=== PATIENT | female | born 1965 | race American Indian/Alaskan Native ===

== ENCOUNTER 2017-08-23 14:33 | Emergency (ER) | payer OTHER ==
[2017-08-23 14:41] VITALS: BP 113/89
--- NOTE | 2017-08-23 14:43 | EDM.PDOC ---
ED HPI GENERAL MEDICAL PROBLEM - General Chief Complaint: Chest Pain Stated Complaint: [facility] Time Seen by Provider: 08/23/17 14:42 Source of Information: Reports: Patient - History of Present Illness INITIAL COMMENTS - FREE TEXT/NARRATIVE: Patient is here for evaluation for chest pain that has been occurring over the past week. She states that it is sharp/nagging/burning feeling in the mid chest and radiates upwards. She states that eating does not affect this, nor does activity. She denies any heartburn or abdominal pain. She denies any associated nausea or diaphoresis when this pain occurs. She states that his been pretty much well constant. Patient reports an overall not very healthy diet but has not been eating much lately. She does smoke cigarettes daily and drinks "a lot" of coffee. Patient does have diabetes, she is on Levemir & NovoLog daily but has not been taking this as sometimes she forgets. She is also on lisinopril for hypertension. Patient doctors at [facility] in [place]. Patient does not have a history of CAD, she does have a history of hypertension and diabetes. Middle Chest Pain Score (Numeric/FACES): 4 - Related Data Allergies Allergy/AdvReac Type Severity Reaction Status Date / Time amoxicillin Allergy Swelling Verified 08/02/16 11:59 clindamycin Allergy Swelling Verified 08/02/16 11:59 Penicillins Allergy Rash Verified 08/23/17 14:41 Sulfa (Sulfonamide Allergy Swelling Verified 08/02/16 11:59 Antibiotics) Tetracyclines Allergy Swelling Verified 08/02/16 11:59 Home Meds: Home Meds Aspirin [Adult Low Dose Aspirin EC] 81 mg PO DAILY 08/23/17 [History] Insulin Aspart [Novolog] 0 unit SQ TID 08/23/17 [History] Insulin Detemir [Levemir] 15 unit SQ BID 08/23/17 [History] Lisinopril 5 mg PO DAILY 08/23/17 [History] Lisinopril 5 mg PO DAILY #30 tablet 08/23/17 [Rx] Omeprazole 20 mg PO DAILY #30 cap.sr 08/23/17 [Rx] Past Medical History Respiratory History: Reports: Asthma [employer] History: Reports: Musculoskeletal History: Reports: Arthritis, Fracture Dermatologic History: Reports: Other (See Below) Other Dermatologic History: abscess - Past Surgical History GI Surgical History: Reports: Cholecystectomy Social & Family History - Tobacco Use Smoking Status *Q: Current Every Day Smoker Years of Tobacco use: 30 Packs/Tins Daily: 1 - Caffeine Use Caffeine Use: Reports: Coffee, Soda, Tea - Recreational Drug Use Recreational Drug Use: No ED ROS GENERAL - Review of Systems Review Of Systems: See Below Constitutional: Reports: Weakness, Fatigue, Decreased Appetite. Denies: Fever, Chills HEENT: Reports: No Symptoms Respiratory: Denies: Shortness of Breath, Wheezing, Cough Cardiovascular: Reports: Chest Pain, Blood Pressure Problem, Dyspnea on Exertion , Edema. Denies: Claudication, Lightheadedness GI/Abdominal: Reports: No Symptoms Musculoskeletal: Reports: No Symptoms Skin: Reports: No Symptoms ED EXAM, GENERAL - Physical Exam Exam: See Below General Appearance: Alert, WD/WN, No Apparent Distress Throat/Mouth: Normal Inspection, Normal Oropharynx Head: Atraumatic, Normocephalic Neck: Normal Inspection, Non-Tender Respiratory/Chest: No Respiratory Distress, Lungs Clear, Normal Breath Sounds, No Accessory Muscle Use Cardiovascular: Normal Peripheral Pulses, Regular Rate, Rhythm, No Murmur GI/Abdominal: Normal Bowel Sounds, Soft, Other (mild epigastric tenderness) Skin Exam: Warm, Dry, Intact EKG INTERPRETATION EKG Date: 08/23/17 Rhythm: NSR Rate (Beats/Min): 71 Course - Vital Signs Last Recorded V/S: Last Vital Signs Temp 96.7 F 08/23/17 14:38 Pulse 70 08/23/17 14:38 Resp 24 H 08/23/17 14:38 BP 113/89 08/23/17 14:38 Pulse Ox 97 08/23/17 14:38 - Orders/Labs/Meds Orders: Active Orders 24 hr Category Date Time Status EKG 12 Lead [EKG Documentation Completion] [RC] STAT Care 08/23/17 14:43 Active CXR [Chest 2V] [CR] Stat Exams 08/23/17 14:52 Taken Labs: Laboratory Tests 08/23/17 08/23/17 Range/Units 14:50 14:50 WBC 9.74 (3.98-10.04) K/mm3 RBC 4.82 (3.98-5.22) M/mm3 Hgb 13.9 (11.2-15.7) gm/L Hct 39.3 (34.1-44.9) % MCV 81.5 (79.4-94.8) fl MCH 28.8 (25.6-32.2) pg MCHC 35.4 (32.2-35.5) g/dl RDW Std Deviation 38.5 (36.4-46.3) fL Plt Count 246 (182-369) K/mm3 MPV 9.5 (9.4-12.3) fl Neutrophils % (Manual) 65 H (40-60) % Band Neutrophils % 0 (0-10) % Lymphocytes % (Manual) 32 (20-40) % Atypical Lymphs % 0 % Monocytes % (Manual) 2 (2-10) % Eosinophils % (Manual) 1 (0.7-5.8) % Basophils % (Manual) 0 L (0.1-1.2) Platelet Estimate Adequate Plt Morphology Comment Normal RBC Morph Comment Normal Sodium 135 L (136-145) mEq/L Potassium 4.0 (3.5-5.1) mEq/L Chloride 102 (98-107) mEq/L Carbon Dioxide 22 (21-32) mEq/L Anion Gap 15.0 (5-15) BUN 15 (7-18) mg/dL Creatinine 0.8 (0.55-1.02) mg/dL Est Cr Clr Drug Dosing 82.04 mL/min Estimated GFR (MDRD) > 60 (>60) mL/min BUN/Creatinine Ratio 18.8 H (14-18) Glucose 217 H (74-106) mg/dL Calcium 8.9 (8.5-10.1) mg/dL Total Bilirubin 0.5 (0.2-1.0) mg/dL AST 18 (15-37) U/L ALT 26 (14-59) U/L Alkaline Phosphatase 88 (46-116) U/L Troponin I < 0.017 (0.00-0.056) ng/mL C-Reactive Protein 0.9 (<1.0) mg/dL Total Protein 8.1 (6.4-8.2) g/dl Albumin 3.2 L (3.4-5.0) g/dl Globulin 4.9 gm/dL Albumin/Globulin Ratio 0.7 L (1-2) Lipase 108 (73-393) U/L Meds: Medications Discontinued Medications Generic Name Dose Route Start Last Admin Trade Name Oscar PRN Reason Stop Dose Admin Al Hydroxide/Mg Hydroxide 30 0 ml 08/23/17 14:53 08/23/17 15:15 ml/ Lidocaine HCl 15 ml PO 08/23/17 14:54 45 ml ONETIME ONE Administration Sodium Chloride 1,000 mls @ 999 mls/hr 08/23/17 15:07 08/23/17 15:15 Normal Saline IV 08/23/17 16:07 999 mls/hr ONETIME ONE Administration - Re-Assessments/Exams Free Text/Narrative Re-Assessment/Exam: Patient's symptoms completely resolved with GI cocktail. EKG demonstrates normal sinus rhythm with a rate of 71. Troponin is negative, patient has been having symptoms all throughout the day as well as the week. Sodium mildly low at 135 but glucose is 217. Patient has not taken her insulin today and plans to take this at home. Question if patient's symptoms were related to GERD, will start omeprazole 20 mg daily 30 minutes prior to breakfast. She is to follow-up with her PCP at [facility], her lisinopril has also been refilled as she has not been able to get this from her PCP. She certainly may return to emergency room if any worsening symptoms. 08/23/17 16:48 Departure - Departure Time of Disposition: 16:43 Disposition: Home, Self-Care 01 Condition: Good Clinical Impression: Atypical chest pain GERD (gastroesophageal reflux disease) Qualifiers: Esophagitis presence: esophagitis presence not specified Qualified Code(s): K21.9 - Gastro-esophageal reflux disease without esophagitis Prescriptions: Lisinopril 5 mg PO DAILY #30 tablet Omeprazole 20 mg PO DAILY #30 cap.sr Referrals: PCP,None [Primary Care Provider] - Forms: ED Department Discharge Additional Instructions: Tests for your heart function showed no abnormality today. You need to take her lisinopril as prescribed, a refill has been sent for this. You also need to take her insulin as prescribed. Start omeprazole 20 mg daily 30 minutes before breakfast and try to avoid smoking and coffee. Follow-up with her primary provider or certainly return to the emergency room if any worsening of symptoms. - My Orders Last 24 Hours: My Active Orders 08/23/17 14:43 EKG 12 Lead [EKG Documentation Completion] [RC] STAT 08/23/17 14:52 CXR [Chest 2V] [CR] Stat - Assessment/Plan Last 24 Hours: My Active Orders 08/23/17 14:43 EKG 12 Lead [EKG Documentation Completion] [RC] STAT 08/23/17 14:52 CXR [Chest 2V] [CR] Stat
[2017-08-23] MEDS ORDERED: Alum Hydrox/Mag Hydrox/Simeth 30 ML, Lidocaine 2% 15 ML PO ONE ×2 (14:53)
[2017-08-23] MEDS ORDERED: Sodium Chloride 0.9% 1,000 ML IV ONE (15:07)
--- NOTE | 2017-08-23 17:11 | CR ---
Chest: Two views of the chest were obtained. Comparison: No prior study. Heart size and mediastinum are normal. Lungs are clear. Mild scoliosis is noted within the spine with diffuse degenerative spurring and diffuse disc space narrowing. Mild compression deformities are seen with mid thoracic spine which are felt to be old or developmental. Impression: 1. Spine findings as noted above which are likely chronic. 2. Nothing acute is appreciated on two-view chest x-ray. Diagnostic code #2
== END 2017-08-23 17:03 | disposition home or self-care (01) ==
LOC: JD.ED 14:33
DX: K21.9 Gastro-esophageal reflux disease without esophagitis (principal); R07.89 Other chest pain; I10 Essential (primary) hypertension; F17.210 Nicotine dependence, cigarettes, uncomplicated; Z88.0 Allergy status to penicillin; Z88.2 Allergy status to sulfonamides; Z79.82 Long term (current) use of aspirin; Z79.4 Long term (current) use of insulin; Z88.1 Allergy status to other antibiotic agents; Z79.899 Other long term (current) drug therapy
CPT/HCPCS: 36415; 71046; 80053; 83690; 84484; 85025; 86140; 93005; 96360; 99285; A9270; J7040; 99284

== ENCOUNTER 2018-11-10 23:25 | Emergency (ER) | payer OTHER ==
[2018-11-11] MEDS ORDERED: Nitrofurantoin Monohydrate/Macrocrystalline 100 MG Cap ONE (01:21)
--- NOTE | 2018-11-12 08:31 | ER ---
DATE OF ER VISIT: 11/11/2018 CHIEF COMPLAINT: Burning and frequency with urination. HISTORY OF PRESENT ILLNESS: The patient has had a 2 to 3 day history of worsening urinary frequency, occasional discomfort, and occasional passing of blood in her urine. Her blood sugars have been going up since she has had symptoms like this into the 300s. She is on insulin and taking a sliding scale. She is a poorly controlled type 2 diabetic. She has had several urinary tract infections much like this in the past. She denies any fevers or chills, but thought she did feel a little warm at 1 point, did take some Tylenol for this, and she did have improvement with her symptoms. PAST MEDICAL HISTORY: Significant for hypertension, type 2 diabetes, on insulin, recurrent UTIs, and morbid obesity. PAST SURGICAL HISTORY: Significant for cholecystectomy. REVIEW OF SYSTEMS: GENERAL: She thought she felt a little warm, but no significant fevers, no chills, no weakness. CARDIOVASCULAR: No chest pain or chest pressure. PULMONARY: No breathing difficulty or shortness of breath. GASTROINTESTINAL: No nausea, vomiting, constipation, diarrhea, and she has got some mild suprapubic discomfort. NEUROLOGIC: Unremarkable. PHYSICAL EXAMINATION: GENERAL: The patient appears stated age. She is in no acute distress. VITAL SIGNS: Temperature is 97 degrees, pulse 80 and regular, respirations 20 and nonlabored, blood pressure is 171/75, she rates her pain as a 7/10, and O2 saturations 96% on room air. HEAD: Normocephalic, atraumatic. NECK: Supple. No palpable neck masses. Thyroid is not palpable. HEART: Regular rate and rhythm. LUNGS: Clear. Respirations nonlabored. ABDOMEN: Active bowel sounds. Soft. She is morbidly obese. She has some suprapubic discomfort. No rigidity, rebound, or guarding. EXTREMITIES: Skin edema, this is normal for her. LABORATORY DATA: Urinalysis is suggestive of infectious process, positive leukocyte esterase, lots of clumped white cells, bacteria noted, does not appear to be a contaminated specimen. ASSESSMENT: Urinary tract infection. PLAN: The patient was started on Macrobid 100 mg p.o. b.i.d., 1st dose given here in the emergency room. She will stay on this for 1 week. She is to pay strict control to her blood sugars and follow her sliding scale. Return to the emergency room if anything is getting worse. Follow up in the clinic as needed; however, she should follow up in 3 to 4 days after finishing the antibiotics for recheck and she does understand this. ISAÍAS /[id number]
== END 2018-11-11 01:25 | disposition home or self-care (01) ==
LOC: JD.ED 23:25
DX: N39.0 Urinary tract infection, site not specified (principal); I10 Essential (primary) hypertension; E11.9 Type 2 diabetes mellitus without complications; Z79.4 Long term (current) use of insulin; E66.01 Morbid (severe) obesity due to excess calories
CPT/HCPCS: 81001; 99283; A9270

== ENCOUNTER 2022-06-16 00:57 | Inpatient (IN) | payer OTHER ==
[2022-06-16] MEDS ORDERED: Insulin Regular, Human 100 Units/ML 3 ML Vial SUBCUT STA (01:46)
[2022-06-16 03:01] LABS: ESTIMATED GFR 74 mL/min (>60)
[2022-06-16] MEDS ORDERED: Sodium Chloride 0.9% 1,000 ML IV SCH (03:30)
[2022-06-16] MEDS ORDERED: Magnesium Sulfate/Water 2 GM in Premix Bag 1 BAG IV ONE (03:30)
[2022-06-16 03:34] LABS: CORONAVIRUS COVID-19 NAA NEGATIVE (NEGATIVE)
[2022-06-16] MEDS ORDERED: Iopamidol 755 Mg/ML 100 ML Bottle IVPUSH ONE (05:21)
[2022-06-16] MEDS ORDERED: Albuterol/Ipratropium 3.0-0.5 MG/3 ML Neb Soln NEB PRN (09:50)
[2022-06-16] MEDS ORDERED: Furosemide 40 MG/4 ML VIAL IVPUSH ONE ×2 (09:50→14:00)
[2022-06-16 13:22] LABS: HEMOGLOBIN A1C 9.7 %
[2022-06-16] MEDS: Nicotine 7 MG/24 Hr Patch TRDERM SCH (15:46)
[2022-06-16] MEDS: Insulin Lispro 100 Unit/ML 3 ML KwikPen SUBCUT SCH ×3 (15:46→20:46)
[2022-06-16] MEDS: Docusate Sodium 100 MG Cap PO SCH (15:47)
[2022-06-16] MEDS ORDERED: Lidocaine 1% 10 ML MDV INJECT ONE (17:55)
[2022-06-16] MEDS: Rosuvastatin 10 MG Tab PO SCH ×2 (20:22→20:39)
[2022-06-16] MEDS: Metoprolol Tartrate 25 MG Tab PO SCH (20:23)
[2022-06-16] MEDS: Insulin Glargine,Human Rec. Analog 100 Units/ML 3 ML Pen SUBCUT SCH (20:36)
[2022-06-16] MEDS ORDERED: Benzocaine/Cetylpyridinium/Menthol Lozenge MUCMEM PRN (20:37)
[2022-06-16] MEDS ORDERED: guaiFENesin/Dextromethorphan 100-10 MG/5 ML Soln 5 ML Cup PO PRN (20:41)
[2022-06-16] MEDS ORDERED: Insulin Glargine,Human Rec. Analog 100 Units/ML 3 ML Pen SUBCUT SCH ×2 (21:00)
[2022-06-17] MEDS: Furosemide 40 MG/4 ML VIAL IVPUSH SCH ×2 (06:48→14:47)
[2022-06-17] MEDS ORDERED: Magnesium Sulfate/Water 2 GM in Premix Bag 1 BAG IV ONE (08:00)
[2022-06-17] MEDS ORDERED: Lisinopril 5 MG Tab PO SCH (09:00)
[2022-06-17] MEDS: Insulin Glargine,Human Rec. Analog 100 Units/ML 3 ML Pen SUBCUT SCH ×2 (09:06→20:38)
[2022-06-17] MEDS: Insulin Lispro 100 Unit/ML 3 ML KwikPen SUBCUT SCH ×4 (09:07→20:26)
[2022-06-17] MEDS: Metoprolol Tartrate 25 MG Tab PO SCH (09:08)
[2022-06-17] MEDS: Enoxaparin 40 MG/0.4 ML Syringe SUBCUT SCH (09:08)
[2022-06-17] MEDS: Aspirin 81 MG Tab.Chew PO SCH (09:27)
[2022-06-17] MEDS: Docusate Sodium 100 MG Cap PO SCH (09:29)
[2022-06-17] MEDS: Nicotine 7 MG/24 Hr Patch TRDERM SCH (09:32)
[2022-06-17] MEDS: Sacubitril/Valsartan 1 EACH Tablet PO SCH (20:11)
[2022-06-17] MEDS: Rosuvastatin 10 MG Tab PO SCH (20:11)
[2022-06-17] MEDS: Ondansetron 4 MG/2 ML SDV IV PRN (20:37)
[2022-06-18] MEDS: Ondansetron 4 MG/2 ML SDV IV PRN (04:21)
[2022-06-18] MEDS: Insulin Lispro 100 Unit/ML 3 ML KwikPen SUBCUT SCH ×4 (08:00→21:45)
[2022-06-18] MEDS: Aspirin 81 MG Tab.Chew PO SCH (08:53)
[2022-06-18] MEDS: Enoxaparin 40 MG/0.4 ML Syringe SUBCUT SCH (08:54)
[2022-06-18] MEDS: Sacubitril/Valsartan 1 EACH Tablet PO SCH ×2 (08:54→21:40)
[2022-06-18] MEDS: Nicotine 7 MG/24 Hr Patch TRDERM SCH (09:00)
[2022-06-18] MEDS: Docusate Sodium 100 MG Cap PO SCH (09:03)
[2022-06-18] MEDS: Insulin Glargine,Human Rec. Analog 100 Units/ML 3 ML Pen SUBCUT SCH ×2 (09:03→21:50)
[2022-06-18] MEDS ORDERED: Furosemide 40 MG/4 ML VIAL IVPUSH ONE (12:11)
[2022-06-18] MEDS: Rosuvastatin 10 MG Tab PO SCH (21:40)
[2022-06-19] MEDS: Insulin Lispro 100 Unit/ML 3 ML KwikPen SUBCUT SCH ×3 (07:43→16:50)
[2022-06-19] MEDS: Aspirin 81 MG Tab.Chew PO SCH (08:34)
[2022-06-19] MEDS: Docusate Sodium 100 MG Cap PO SCH (08:34)
[2022-06-19] MEDS: Enoxaparin 40 MG/0.4 ML Syringe SUBCUT SCH (08:34)
[2022-06-19] MEDS: Insulin Glargine,Human Rec. Analog 100 Units/ML 3 ML Pen SUBCUT SCH (08:34)
[2022-06-19] MEDS: Sacubitril/Valsartan 1 EACH Tablet PO SCH (08:34)
[2022-06-19] MEDS: Nicotine 7 MG/24 Hr Patch TRDERM SCH (08:44)
[2022-06-19] MEDS ORDERED: amLODIPine 5 MG Tab PO SCH (09:00)
[2022-06-19] MEDS: Bumetanide 1 MG/4 ML MDV IVPUSH SCH (11:03)
[2022-06-20] MEDS: Sacubitril/Valsartan 1 EACH Tablet PO SCH ×3 (00:07→22:05)
[2022-06-20] MEDS: Rosuvastatin 10 MG Tab PO SCH ×2 (00:07→22:05)
[2022-06-20] MEDS: Insulin Glargine,Human Rec. Analog 100 Units/ML 3 ML Pen SUBCUT SCH ×3 (00:08→22:05)
[2022-06-20] MEDS: Insulin Lispro 100 Unit/ML 3 ML KwikPen SUBCUT SCH ×5 (00:09→22:06)
[2022-06-20] MEDS: Bumetanide 1 MG/4 ML MDV IVPUSH SCH (00:20)
[2022-06-20] MEDS: Acetaminophen 325 MG Tab PO PRN (05:53)
[2022-06-20] MEDS: Docusate Sodium 100 MG Cap PO SCH (09:12)
[2022-06-20] MEDS: Aspirin 81 MG Tab.Chew PO SCH (09:12)
[2022-06-20] MEDS: Furosemide 40 MG Tab PO SCH (09:12)
[2022-06-20] MEDS: Nicotine 7 MG/24 Hr Patch TRDERM SCH (09:12)
[2022-06-20] MEDS: Enoxaparin 40 MG/0.4 ML Syringe SUBCUT SCH (09:14)
[2022-06-20] MEDS: Metoprolol Succinate 25 MG Tab.ER PO SCH (15:39)
[2022-06-21] MEDS ORDERED: Magnesium Sulfate/Water 4 GM in Premix Bag 1 BAG IV ONE (08:00)
[2022-06-21] MEDS ORDERED: Sodium Chloride 0.9% 500 ML ONE (08:20)
[2022-06-21] MEDS: Insulin Lispro 100 Unit/ML 3 ML KwikPen SUBCUT SCH (08:26)
[2022-06-21] MEDS: Insulin Glargine,Human Rec. Analog 100 Units/ML 3 ML Pen SUBCUT SCH (08:27)
[2022-06-21] MEDS: Furosemide 40 MG Tab PO SCH (08:29)
[2022-06-21] MEDS: Acetaminophen 325 MG Tab PO PRN (08:30)
[2022-06-21] MEDS: Sacubitril/Valsartan 1 EACH Tablet PO SCH (08:30)
[2022-06-21] MEDS: Aspirin 81 MG Tab.Chew PO SCH (08:30)
[2022-06-21] MEDS: Docusate Sodium 100 MG Cap PO SCH (08:30)
[2022-06-21] MEDS: Enoxaparin 40 MG/0.4 ML Syringe SUBCUT SCH (08:30)
[2022-06-21] MEDS: Metoprolol Succinate 25 MG Tab.ER PO SCH (08:31)
[2022-06-21] MEDS: Nicotine 7 MG/24 Hr Patch TRDERM SCH (08:38)
[2022-06-21 12:33] VITALS: BP 123/81; PULSE 64
[2022-06-22] MEDS ORDERED: Magnesium Oxide 400 MG Tab PO SCH (09:00)
== END 2022-06-21 12:10 | disposition home or self-care (01) | DRG 187 ==
LOC: JD.ED 00:57 → JD.MS 09:31
PROVIDERS: ADMIT Pediatrics; ATTEND Internal Medicine
PROC: 0W993ZX Drainage of Right Pleural Cavity, Percutaneous Approach, Diagnostic (ICD-10-PCS; principal; 2022-06-16)
DX: J90 Pleural effusion, not elsewhere classified (principal); I50.42 Chronic combined systolic (congestive) and diastolic (congestive) heart failure; I25.10 Atherosclerotic heart disease of native coronary artery without angina pectoris; I11.0 Hypertensive heart disease with heart failure; Z91.14 Patient's other noncompliance with medication regimen; R06.00 Dyspnea, unspecified; E11.65 Type 2 diabetes mellitus with hyperglycemia; Z79.4 Long term (current) use of insulin; E83.42 Hypomagnesemia; E66.01 Morbid (severe) obesity due to excess calories; R79.89 Other specified abnormal findings of blood chemistry; M15.9 Polyosteoarthritis, unspecified; R93.2 Abnormal findings on diagnostic imaging of liver and biliary tract; E78.00 Pure hypercholesterolemia, unspecified; I25.2 Old myocardial infarction; Z85.6 Personal history of leukemia; Z86.16 Personal history of COVID-19; F17.210 Nicotine dependence, cigarettes, uncomplicated; Z88.0 Allergy status to penicillin; Z88.1 Allergy status to other antibiotic agents; Z88.2 Allergy status to sulfonamides; Z79.82 Long term (current) use of aspirin; Z79.899 Other long term (current) drug therapy; Z20.822 Contact with and (suspected) exposure to COVID-19; Z66 Do not resuscitate
CPT/HCPCS: 0241U; 36415; 71045; 71045-26; 71046; 71046-26; 71275; 71275-26; 74176; 74176-26; 76705; 76705-26; 80048; 80053; 80061; 81001; 82009; 82945; 82947; 83036; 83605; 83615; 83735; 83880; 83986; 84100; 84157; 84311; 84484; 85007; 85025; 85027; 85379; 85610; 85730; 86140; 86803; 87040; 87205; 89050; 93005; 93306; 96365; 96366; 97162-GP; 97166-GO; 97530-GP; 99285-25; A9270-GY; J1650; J1815; J1815-GY; J1940; J2405; J3475; J3490; J7030; J7040; Q9967

== ENCOUNTER 2022-07-24 20:30 | Inpatient (IN) | payer OTHER ==
[2022-07-24] MEDS ORDERED: Furosemide 40 MG/4 ML VIAL IVPUSH ONE (20:39)
[2022-07-24] MEDS ORDERED: Sodium Chloride 0.9% 10 ML Syringe FLUSH PRN (20:41)
[2022-07-24 21:12] LABS: HEMOGLOBIN A1C 8.8 %
[2022-07-24 21:28] LABS: ESTIMATED GFR 74 mL/min (>60)
[2022-07-24 21:39] LABS: CORONAVIRUS COVID-19 NAA NEGATIVE (NEGATIVE)
[2022-07-24] MEDS ORDERED: Insulin Regular, Human 100 Units/ML 3 ML Vial SUBCUT ONE (22:41)
[2022-07-24] MEDS ORDERED: Insulin Lispro 100 Unit/ML 3 ML KwikPen SUBCUT ONE (22:41)
[2022-07-24] MEDS ORDERED: Sacubitril/Valsartan 1 EACH Tablet PO ONE (22:42)
[2022-07-24] MEDS ORDERED: LORazepam 2 MG/ML SDV IVPUSH ONE (22:44)
[2022-07-25] MEDS ORDERED: Furosemide 40 MG/4 ML VIAL IVPUSH ONE ×2 (02:30→07:20)
[2022-07-25] MEDS ORDERED: Magnesium Oxide 400 MG Tab PO ONE ×2 (08:55→12:00)
[2022-07-25] MEDS ORDERED: Sacubitril/Valsartan 1 EACH Tablet PO SCH (09:00)
[2022-07-25] MEDS ORDERED: Metoprolol Succinate 25 MG Tab.ER PO SCH (09:00)
[2022-07-25] MEDS ORDERED: Docusate Sodium 100 MG Cap PO PRN (11:40)
[2022-07-25] MEDS ORDERED: Polyethylene Glycol 3350 Powder 17 GM Packet PO PRN (11:40)
[2022-07-25] MEDS: Aspirin 81 MG Tab.Chew PO SCH (11:56)
[2022-07-25] MEDS: Insulin Lispro 100 Unit/ML 3 ML KwikPen SUBCUT SCH ×3 (11:56→21:42)
[2022-07-25] MEDS: Insulin Glargine,Human Rec. Analog 100 Units/ML 3 ML Pen SUBCUT SCH ×2 (11:57→21:41)
[2022-07-25] MEDS: Enoxaparin 40 MG/0.4 ML Syringe SUBCUT SCH (12:10)
[2022-07-25] MEDS: Metoprolol Succinate 25 MG Tab.ER PO SCH (12:11)
[2022-07-25] MEDS: Sacubitril/Valsartan 1 EACH Tablet PO SCH ×2 (12:16→20:12)
[2022-07-25] MEDS: Furosemide 40 MG/4 ML VIAL IVPUSH SCH (15:45)
[2022-07-25] MEDS: Nicotine 14 MG/24 Hr Patch TRDERM SCH (15:45)
[2022-07-25] MEDS: Rosuvastatin 10 MG Tab PO SCH (20:12)
[2022-07-25] MEDS: Acetaminophen 325 MG Tab PO PRN (20:12)
[2022-07-26] MEDS: Furosemide 40 MG/4 ML VIAL IVPUSH SCH ×2 (06:57→14:01)
[2022-07-26] MEDS ORDERED: Magnesium Sulfate/Water 2 GM in Premix Bag 1 BAG IV ONE (07:52)
[2022-07-26] MEDS: Enoxaparin 40 MG/0.4 ML Syringe SUBCUT SCH (09:41)
[2022-07-26] MEDS: Metoprolol Succinate 25 MG Tab.ER PO SCH (09:42)
[2022-07-26] MEDS: Aspirin 81 MG Tab.Chew PO SCH (09:42)
[2022-07-26] MEDS: Sacubitril/Valsartan 1 EACH Tablet PO SCH ×2 (09:42→20:09)
[2022-07-26] MEDS: Magnesium Oxide 400 MG Tab PO SCH (09:42)
[2022-07-26] MEDS: Insulin Lispro 100 Unit/ML 3 ML KwikPen SUBCUT SCH ×4 (09:45→21:13)
[2022-07-26] MEDS: Insulin Glargine,Human Rec. Analog 100 Units/ML 3 ML Pen SUBCUT SCH ×2 (09:49→21:13)
[2022-07-26] MEDS: Nicotine 14 MG/24 Hr Patch TRDERM SCH (09:54)
[2022-07-26] MEDS: Acetaminophen 325 MG Tab PO PRN (14:01)
[2022-07-26] MEDS ORDERED: Acetaminophen/Codeine 300-30 MG Tab PO PRN (20:15)
[2022-07-26] MEDS: Rosuvastatin 10 MG Tab PO SCH (21:13)
[2022-07-27] MEDS: Furosemide 40 MG/4 ML VIAL IVPUSH SCH ×2 (06:15→14:04)
[2022-07-27] MEDS ORDERED: Magnesium Sulfate/Water 4 GM in Premix Bag 1 BAG IV ONE (08:15)
[2022-07-27] MEDS: Insulin Lispro 100 Unit/ML 3 ML KwikPen SUBCUT SCH ×4 (08:30→21:27)
[2022-07-27] MEDS: Sacubitril/Valsartan 1 EACH Tablet PO SCH ×2 (08:31→20:14)
[2022-07-27] MEDS: Aspirin 81 MG Tab.Chew PO SCH (08:31)
[2022-07-27] MEDS: Metoprolol Succinate 25 MG Tab.ER PO SCH (08:31)
[2022-07-27] MEDS: Magnesium Oxide 400 MG Tab PO SCH (08:31)
[2022-07-27] MEDS: Nicotine 14 MG/24 Hr Patch TRDERM SCH (08:33)
[2022-07-27] MEDS: Enoxaparin 40 MG/0.4 ML Syringe SUBCUT SCH (08:33)
[2022-07-27] MEDS: Insulin Glargine,Human Rec. Analog 100 Units/ML 3 ML Pen SUBCUT SCH ×2 (08:43→21:26)
[2022-07-27] MEDS: Rosuvastatin 10 MG Tab PO SCH (20:14)
[2022-07-28] MEDS: Furosemide 40 MG/4 ML VIAL IVPUSH SCH (07:01)
[2022-07-28] MEDS: Nicotine 14 MG/24 Hr Patch TRDERM SCH (08:33)
[2022-07-28] MEDS: Metoprolol Succinate 25 MG Tab.ER PO SCH (08:33)
[2022-07-28] MEDS: Magnesium Oxide 400 MG Tab PO SCH (08:34)
[2022-07-28] MEDS: Sacubitril/Valsartan 1 EACH Tablet PO SCH (08:34)
[2022-07-28] MEDS: Enoxaparin 40 MG/0.4 ML Syringe SUBCUT SCH (08:34)
[2022-07-28] MEDS: Aspirin 81 MG Tab.Chew PO SCH (08:34)
[2022-07-28] MEDS: Insulin Glargine,Human Rec. Analog 100 Units/ML 3 ML Pen SUBCUT SCH (08:34)
[2022-07-28 08:35] VITALS: BP 104/64; PULSE 72
[2022-07-28] MEDS: Insulin Lispro 100 Unit/ML 3 ML KwikPen SUBCUT SCH ×2 (08:37→12:24)
== END 2022-07-28 12:20 | disposition home or self-care (01) | DRG 291 ==
LOC: JD.ED 20:30 → JD.ICU 07-25 08:55 → JD.MS 07-25 13:27
PROVIDERS: ADMIT Pediatrics; ATTEND Pediatrics
DX: I11.0 Hypertensive heart disease with heart failure (principal); I50.43 Acute on chronic combined systolic (congestive) and diastolic (congestive) heart failure; Z68.41 Body mass index [BMI] 40.0-44.9, adult; I25.10 Atherosclerotic heart disease of native coronary artery without angina pectoris; E78.5 Hyperlipidemia, unspecified; J44.9 Chronic obstructive pulmonary disease, unspecified; Z66 Do not resuscitate; L40.9 Psoriasis, unspecified; H54.7 Unspecified visual loss; E78.00 Pure hypercholesterolemia, unspecified; Z20.822 Contact with and (suspected) exposure to COVID-19; K21.9 Gastro-esophageal reflux disease without esophagitis; E11.65 Type 2 diabetes mellitus with hyperglycemia; E83.42 Hypomagnesemia; M19.90 Unspecified osteoarthritis, unspecified site; E66.01 Morbid (severe) obesity due to excess calories; G43.909 Migraine, unspecified, not intractable, without status migrainosus; D64.9 Anemia, unspecified; Z86.16 Personal history of COVID-19; Z90.89 Acquired absence of other organs; Z88.1 Allergy status to other antibiotic agents; I25.2 Old myocardial infarction; Z88.0 Allergy status to penicillin; Z88.2 Allergy status to sulfonamides; Z88.8 Allergy status to other drugs, medicaments and biological substances; Z79.82 Long term (current) use of aspirin; Z79.4 Long term (current) use of insulin; Z79.899 Other long term (current) drug therapy; Z87.440 Personal history of urinary (tract) infections; Z87.891 Personal history of nicotine dependence; Z90.49 Acquired absence of other specified parts of digestive tract; Z91.14 Patient's other noncompliance with medication regimen
CPT/HCPCS: 0241U; 36415; 71045; 71045-26; 80048; 80053; 81001; 82553; 82947; 83036; 83605; 83735; 83880; 84484; 85025; 85610; 85730; 86140; 93005; 96372; 96374; 96375; 96376; 99285-25; A9270-GY; J1650; J1815; J1815-GY; J1940; J2060; J3475; J3490

== ENCOUNTER 2024-03-31 08:26 | Inpatient (IN) | payer OTHER ==
[2024-03-31] MEDS ORDERED: Sodium Chloride 0.9% 10 ML Syringe FLUSH PRN (08:41)
[2024-03-31] MEDS ORDERED: Nitroglycerin 0.4 MG Tab.SL SL PRN (08:45)
[2024-03-31 09:00] LABS: BASOPHILS PERCENT AUTO 0.5 % (0.0-1.0); EOSINOPHILS ABSOLUTE AUTO 0.1 K/mm3 (0.0-0.4); EOSINOPHILS PERCENT AUTO 0.9 % (0.0-6.0); HEMATOCRIT 45.9 % (37.0-47.0); HEMOGLOBIN 14.9 gm/dl (12.0-16.0); IMMATURE GRAN ABSOLUTE AUTO 0.04 K/mm3 (0.00-0.05); IMMATURE GRAN PERCENT AUTO 0.5 % (0.0-0.4); LYMPHOCYTES ABSOLUTE AUTO 1.3 K/mm3 (1.0-4.8); LYMPHOCYTES PERCENT AUTO 16.1 % (24.0-44.0); MEAN CORPUSCULAR HEMOGLOBIN 28.3 pg (28.0-32.0); MEAN CORPUSCULAR HGB CONC 32.5 g/dl (32.0-36.0); MEAN CORPUSCULAR VOLUME 87.3 fl (83.0-99.0); MEAN PLATELET VOLUME 9.3 fl (9.4-12.3); MONOCYTES ABSOLUTE AUTO 0.4 K/mm3 (0.0-0.8); MONOCYTES PERCENT AUTO 4.8 % (0.0-8.0); NEUTROPHILS ABSOLUTE AUTO 6.2 K/mm3 (1.8-7.7); NEUTROPHILS PERCENT AUTO 77.2 % (41.0-71.0); PLATELET COUNT,PLT 243 K/mm3 (150-400); RED BLOOD CELL COUNT 5.26 M/mm3 (4.10-5.30); WHITE BLOOD CELL COUNT,WBC 8.07 K/mm3 (3.9-11.3)
[2024-03-31 09:23] LABS: A/G RATIO 0.6 (1-2); ALBUMIN 2.8 g/dl (3.4-5.0); ANION GAP 14.2 (5-15); BILIRUBIN TOTAL 0.9 mg/dL (0.2-1.0); CALCIUM 8.9 mg/dL (8.5-10.1); EST CRCL DRUG DOSING (CG) 61.1 mL/min; MAGNESIUM 1.5 mg/dL (1.8-2.4); PROTEIN TOTAL,TP 7.5 g/dl (6.4-8.2)
[2024-03-31 09:26] LABS: POTASSIUM,K 5.2 mEq/L (3.5-5.1)
[2024-03-31] MEDS: Aspirin 81 MG Tab.Chew PO ONE (09:38)
[2024-03-31 11:28] LABS: CORONAVIRUS COVID-19 NAA NEGATIVE (NEGATIVE); INFLUENZA A NAA NEGATIVE (NEGATIVE); RESPIRATORY SYNCYTIAL VIR NAA NEGATIVE (NEGATIVE)
[2024-03-31] MEDS: Furosemide 40 MG/4 ML VIAL IVPUSH ONE ×2 (12:54→15:37)
[2024-03-31] MEDS ORDERED: 50% Dextrose in Water 50 ML Syringe IVPUSH PRN (14:55)
[2024-03-31] MEDS ORDERED: Morphine 2 MG/ML SYRINGE IVPUSH PRN (14:58)
[2024-03-31] MEDS ORDERED: Sennosides/Docusate Sodium 50-8.6 MG Tab PO PRN (14:58)
[2024-03-31] MEDS ORDERED: Melatonin 3 MG Tab PO PRN (14:58)
[2024-03-31] MEDS ORDERED: Naloxone 0.4 MG/ML SDV IVPUSH PRN (14:58)
[2024-03-31] MEDS ORDERED: Acetaminophen 325 MG Tab PO PRN (14:58)
[2024-03-31] MEDS ORDERED: LORazepam 2 MG/ML SDV IV PRN (14:58)
[2024-03-31] MEDS: Magnesium Sulfate/Water 4 GM in Premix Bag 1 BAG IV ONE (15:37)
[2024-03-31] MEDS: Insulin Lispro 100 Unit/ML 3 ML KwikPen SUBCUT SCH (17:07)
[2024-04-01 06:06] LABS: BASOPHILS ABSOLUTE AUTO 0.1 K/mm3 (0.0-0.2); BASOPHILS PERCENT AUTO 0.7 % (0.0-1.0); EOSINOPHILS ABSOLUTE AUTO 0.1 K/mm3 (0.0-0.4); EOSINOPHILS PERCENT AUTO 1.6 % (0.0-6.0); IMMATURE GRAN ABSOLUTE AUTO 0.03 K/mm3 (0.00-0.05); IMMATURE GRAN PERCENT AUTO 0.4 % (0.0-0.4); MEAN CORPUSCULAR HEMOGLOBIN 27.9 pg (28.0-32.0); MEAN CORPUSCULAR HGB CONC 31.8 g/dl (32.0-36.0); MEAN CORPUSCULAR VOLUME 87.8 fl (83.0-99.0); MEAN PLATELET VOLUME 9.2 fl (9.4-12.3); MONOCYTES ABSOLUTE AUTO 0.5 K/mm3 (0.0-0.8); MONOCYTES PERCENT AUTO 6.7 % (0.0-8.0); NEUTROPHILS ABSOLUTE AUTO 4.6 K/mm3 (1.8-7.7); NEUTROPHILS PERCENT AUTO 63.6 % (41.0-71.0); PLATELET COUNT,PLT 229 K/mm3 (150-400); RED BLOOD CELL COUNT 5.01 M/mm3 (4.10-5.30)
[2024-04-01 06:27] LABS: A/G RATIO 0.6 (1-2); ALBUMIN 2.5 g/dl (3.4-5.0); BILIRUBIN TOTAL 0.9 mg/dL (0.2-1.0); BUN/CREATININE RATIO 12.7 (14-18); CALCIUM 8.7 mg/dL (8.5-10.1); CREATININE 1.1 mg/dL (0.55-1.02); EST CRCL DRUG DOSING (CG) 55.55 mL/min; MAGNESIUM 1.9 mg/dL (1.8-2.4); PHOSPHORUS 4.3 mg/dL (2.6-4.7); PROTEIN TOTAL,TP 6.5 g/dl (6.4-8.2)
[2024-04-01] MEDS: Enoxaparin 40 MG/0.4 ML Syringe SUBCUT SCH (08:23)
[2024-04-01] MEDS ORDERED: Nitroglycerin 0.4 MG Tab.SL SL PRN (16:46)
[2024-04-01] MEDS: Magnesium Oxide 400 MG Tab PO SCH (17:41)
[2024-04-01] MEDS: Aspirin 81 MG Tab.Chew PO SCH (17:41)
[2024-04-01] MEDS: Furosemide 40 MG Tab PO SCH (17:41)
[2024-04-01] MEDS: Metoprolol Succinate 25 MG Tab.ER PO SCH (17:42)
[2024-04-01] MEDS: Empagliflozin 10 MG Tab PO SCH (17:42)
[2024-04-01] MEDS: Albuterol 6.7 GM Inhaler INH SCH (19:02)
[2024-04-01] MEDS: Insulin Glargine,Human Rec. Analog 100 Units/ML 3 ML Pen SUBCUT SCH (20:06)
[2024-04-01] MEDS: Sacubitril/Valsartan 1 EACH Tablet PO SCH (20:07)
[2024-04-01] MEDS: Rosuvastatin 10 MG Tab PO SCH (20:07)
[2024-04-01] MEDS: oxyCODONE 5 MG Tab PO PRN (20:54)
[2024-04-02] MEDS: Albuterol 6.7 GM Inhaler INH SCH (01:28)
[2024-04-02 05:11] LABS: ANION GAP 11.9 (5-15); BUN/CREATININE RATIO 15.8 (14-18); CALCIUM 8.8 mg/dL (8.5-10.1); CREATININE 1.2 mg/dL (0.55-1.02); EST CRCL DRUG DOSING (CG) 50.92 mL/min; MAGNESIUM 1.7 mg/dL (1.8-2.4); POTASSIUM,K 3.9 mEq/L (3.5-5.1)
[2024-04-02] MEDS ORDERED: Albuterol 6.7 GM Inhaler INH PRN (08:00)
[2024-04-02] MEDS: Magnesium Sulfate/Water 4 GM in Premix Bag 1 BAG IV ONE (09:04)
[2024-04-02] MEDS: Spironolactone 25 MG Tab PO SCH (09:07)
[2024-04-02] MEDS: Potassium Chloride 20 MEQ Tab.ER PO ONE (09:07)
[2024-04-03 08:52] VITALS: BP 139/89; PULSE 60
== END 2024-04-03 09:52 | disposition home or self-care (01) | DRG 291 ==
LOC: JD.ED 08:26 → OBSVTOIN 11:57 → JD.MS 11:57
PROVIDERS: ADMIT Student in an Organized Health Care Education/Training Program; ATTEND Student in an Organized Health Care Education/Training Program
DX: I11.0 Hypertensive heart disease with heart failure (principal); I50.43 Acute on chronic combined systolic (congestive) and diastolic (congestive) heart failure; J96.01 Acute respiratory failure with hypoxia; Z68.42 Body mass index [BMI] 45.0-49.9, adult; Z66 Do not resuscitate; I25.10 Atherosclerotic heart disease of native coronary artery without angina pectoris; E78.00 Pure hypercholesterolemia, unspecified; E66.9 Obesity, unspecified; I25.2 Old myocardial infarction; G43.909 Migraine, unspecified, not intractable, without status migrainosus; D64.9 Anemia, unspecified; I50.810 Right heart failure, unspecified; M19.90 Unspecified osteoarthritis, unspecified site; E87.5 Hyperkalemia; E83.42 Hypomagnesemia; E11.65 Type 2 diabetes mellitus with hyperglycemia; J45.909 Unspecified asthma, uncomplicated; I08.1 Rheumatic disorders of both mitral and tricuspid valves; F17.210 Nicotine dependence, cigarettes, uncomplicated; Z88.0 Allergy status to penicillin; Z88.1 Allergy status to other antibiotic agents; Z88.2 Allergy status to sulfonamides; Z88.8 Allergy status to other drugs, medicaments and biological substances; Z97.3 Presence of spectacles and contact lenses; Z79.4 Long term (current) use of insulin; Z79.82 Long term (current) use of aspirin; Z90.49 Acquired absence of other specified parts of digestive tract; Z86.16 Personal history of COVID-19; Z90.89 Acquired absence of other organs; Z79.899 Other long term (current) drug therapy
CPT/HCPCS: 0241U; 36415; 70450; 70450-26; 71045; 71045-26; 71046; 71046-26; 80048; 80053; 82947; 83735; 83880; 84100; 84484; 85025; 93005; 93010; 93306; 94640; 94761; 96374; 99285; 99285-25; A9270-GY; J1650; J1815; J1815-GY; J1940; J3475

== ENCOUNTER 2024-08-03 21:30 | Emergency (ER) | payer OTHER ==
[2024-08-03] MEDS ORDERED: Sodium Chloride 0.9% 10 ML Syringe FLUSH PRN (21:57)
[2024-08-03 22:05] LABS: BASOPHILS ABSOLUTE AUTO 0.1 K/mm3 (0.0-0.2); BASOPHILS PERCENT AUTO 0.6 % (0.0-1.0); EOSINOPHILS ABSOLUTE AUTO 0.1 K/mm3 (0.0-0.4); EOSINOPHILS PERCENT AUTO 0.7 % (0.0-6.0); HEMATOCRIT 48.6 % (37.0-47.0); HEMOGLOBIN 16.2 gm/dl (12.0-16.0); IMMATURE GRAN ABSOLUTE AUTO 0.05 K/mm3 (0.00-0.05); IMMATURE GRAN PERCENT AUTO 0.5 % (0.0-0.4); LYMPHOCYTES ABSOLUTE AUTO 1.8 K/mm3 (1.0-4.8); LYMPHOCYTES PERCENT AUTO 18.9 % (24.0-44.0); MEAN CORPUSCULAR HEMOGLOBIN 27.8 pg (28.0-32.0); MEAN CORPUSCULAR HGB CONC 33.3 g/dl (32.0-36.0); MEAN CORPUSCULAR VOLUME 83.4 fl (83.0-99.0); MEAN PLATELET VOLUME 10.1 fl (9.4-12.3); MONOCYTES ABSOLUTE AUTO 0.5 K/mm3 (0.0-0.8); MONOCYTES PERCENT AUTO 4.8 % (0.0-8.0); NEUTROPHILS ABSOLUTE AUTO 7.2 K/mm3 (1.8-7.7); NEUTROPHILS PERCENT AUTO 74.5 % (41.0-71.0); PLATELET COUNT,PLT 231 K/mm3 (150-400); RED BLOOD CELL COUNT 5.83 M/mm3 (4.10-5.30); WHITE BLOOD CELL COUNT,WBC 9.67 K/mm3 (3.9-11.3)
[2024-08-03] MEDS: Meclizine 25 MG Tab PO ONE (22:08)
[2024-08-03] MEDS: Metoclopramide 10 MG/2 ML SDV IVPUSH ONE (22:08)
[2024-08-03] MEDS: HYDROmorphone 0.5 MG/0.5 ML Syringe IVPUSH ONE (22:08)
[2024-08-03 22:24] LABS: A/G RATIO 0.6 (1-2); ALBUMIN 2.7 g/dl (3.4-5.0); ANION GAP 12.6 (5-15); BILIRUBIN TOTAL 0.8 mg/dL (0.2-1.0); BUN/CREATININE RATIO 16.9 (14-18); CALCIUM 8.7 mg/dL (8.5-10.1); CREATININE 1.3 mg/dL (0.55-1.02); EST CRCL DRUG DOSING (CG) 53.11 mL/min; MAGNESIUM 1.6 mg/dL (1.8-2.4); PROTEIN TOTAL,TP 7.4 g/dl (6.4-8.2)
[2024-08-03 22:36] LABS: POTASSIUM,K 4.6 mEq/L (3.5-5.1)
[2024-08-04 02:19] VITALS: BP 139/81; PULSE 62
== END 2024-08-04 01:54 | disposition home or self-care (01) ==
LOC: JD.ED 21:30
DX: I11.0 Hypertensive heart disease with heart failure (principal); I50.23 Acute on chronic systolic (congestive) heart failure; R42 Dizziness and giddiness; I25.10 Atherosclerotic heart disease of native coronary artery without angina pectoris; I25.2 Old myocardial infarction; E78.00 Pure hypercholesterolemia, unspecified; J45.909 Unspecified asthma, uncomplicated; M19.90 Unspecified osteoarthritis, unspecified site; E11.9 Type 2 diabetes mellitus without complications; E66.9 Obesity, unspecified; Z68.41 Body mass index [BMI] 40.0-44.9, adult; Z86.16 Personal history of COVID-19; Z90.49 Acquired absence of other specified parts of digestive tract; Z88.0 Allergy status to penicillin; Z88.1 Allergy status to other antibiotic agents; Z88.2 Allergy status to sulfonamides; Z88.8 Allergy status to other drugs, medicaments and biological substances; Z79.51 Long term (current) use of inhaled steroids; Z79.82 Long term (current) use of aspirin; Z79.4 Long term (current) use of insulin; Z79.899 Other long term (current) drug therapy
CPT/HCPCS: 36415; 70450; 71045; 80053; 83735; 83880; 84484; 85025; 87428; 93005; 96374; 96375; 99285; A9270; J2765; 93010

== ENCOUNTER 2025-02-08 07:49 | Emergency (ER) | payer OTHER ==
[2025-02-08 09:08] LABS: BASOPHILS ABSOLUTE AUTO 0.0 K/mm3 (0.0-0.2); BASOPHILS PERCENT AUTO 0.4 % (0.0-1.0); EOSINOPHILS ABSOLUTE AUTO 0.1 K/mm3 (0.0-0.4); EOSINOPHILS PERCENT AUTO 0.6 % (0.0-6.0); IMMATURE GRAN ABSOLUTE AUTO 0.05 K/mm3 (0.00-0.05); IMMATURE GRAN PERCENT AUTO 0.5 % (0.0-0.4); LYMPHOCYTES ABSOLUTE AUTO 1.4 K/mm3 (1.0-4.8); LYMPHOCYTES PERCENT AUTO 14.0 % (24.0-44.0); MEAN PLATELET VOLUME 9.7 fl (9.4-12.3); MONOCYTES ABSOLUTE AUTO 0.6 K/mm3 (0.0-0.8); MONOCYTES PERCENT AUTO 6.0 % (0.0-8.0); NEUTROPHILS ABSOLUTE AUTO 7.6 K/mm3 (1.8-7.7); NEUTROPHILS PERCENT AUTO 78.5 % (41.0-71.0); NRBC ABSOLUTE 0.00 (0.00-0.02); NRBC PERCENT 0.0 % (0.0-0.2); PLATELET COUNT,PLT 183 K/mm3 (150-400); RED BLOOD CELL COUNT 5.80 M/mm3 (4.10-5.30); WHITE BLOOD CELL COUNT,WBC 9.65 K/mm3 (3.9-11.3)
[2025-02-08] MEDS: Furosemide 40 MG/4 ML VIAL IVPUSH ONE (09:15)
[2025-02-08 09:38] LABS: A/G RATIO 0.6 (1-2); ALANINE AMINOTRANSFERASE,ALT 19.0 U/L (14-59); ASPARTATE AMNIOTRANSFERASE,AST 17.0 U/L (15-37); BILIRUBIN TOTAL 1.1 mg/dL (0.2-1.0); BLOOD UREA NITROGEN,BUN 18.0 mg/dL (7-18); CARBON DIOXIDE,CO2 28.0 mEq/L (21-32); CHLORIDE,CL 104.0 mEq/L (98-107); CREATINE KINASE,CK 65.0 U/L (26-192); CREATININE 1.1 mg/dL (0.55-1.02); EST CRCL DRUG DOSING (CG) 54.86 mL/min; ESTIMATED GFR 58.0 mL/min (>60); GLUCOSE RANDOM 211.0 mg/dL (70-99); POTASSIUM,K 4.6 mEq/L (3.5-5.1); PROTEIN TOTAL,TP 7.4 g/dl (6.4-8.2); SODIUM,NA 138.0 mEq/L (136-145); TROPONIN I HIGH SENSITIVITY 29.0 pg/mL (<=51)
[2025-02-08 11:08] LABS: BUPRENORPHINE SCREEN,URINE NEGATIVE (CUTOFF=10); METHADONE SCREEN, URINE NEGATIVE (CUTOFF=200); METHAMPHETAMINES SCREEN, URINE NEGATIVE (CUTOFF=500); OXYCODONE SCREEN,URINE NEGATIVE (CUT0FF=100); THC SCREEN,URINE 20 NG/ML NEGATIVE (CUTOFF=50)
[2025-02-08 11:32] LABS: AMPHETAMINES SCREEN, URINE NEGATIVE (CUTOFF=500)
[2025-02-08 13:01] VITALS: BP 138/83; PULSE 75
== END 2025-02-08 12:30 | disposition home or self-care (01) ==
LOC: JD.ED 07:49
DX: I50.43 Acute on chronic combined systolic (congestive) and diastolic (congestive) heart failure (principal); R60.0 Localized edema; Z91.198 Patient's noncompliance with other medical treatment and regimen for other reason; I11.0 Hypertensive heart disease with heart failure; I50.9 Heart failure, unspecified; E78.00 Pure hypercholesterolemia, unspecified; M19.90 Unspecified osteoarthritis, unspecified site; E66.9 Obesity, unspecified; E11.9 Type 2 diabetes mellitus without complications; Z88.0 Allergy status to penicillin; Z88.1 Allergy status to other antibiotic agents; Z88.2 Allergy status to sulfonamides; Z88.8 Allergy status to other drugs, medicaments and biological substances; Z79.82 Long term (current) use of aspirin; Z79.4 Long term (current) use of insulin; Z79.899 Other long term (current) drug therapy; Z86.16 Personal history of COVID-19; Z90.49 Acquired absence of other specified parts of digestive tract
CPT/HCPCS: 36415; 71045; 80053; 80306; 82550; 83690; 83735; 83880; 84484; 85025; 93005; 96365; 96375; 99285; J1938; J3475

== ENCOUNTER 2025-03-28 02:09 | Emergency (ER) | payer OTHER ==
[2025-03-28 02:42] LABS: BASOPHILS ABSOLUTE AUTO 0.0 K/mm3 (0.0-0.2); BASOPHILS PERCENT AUTO 0.4 % (0.0-1.0); EOSINOPHILS ABSOLUTE AUTO 0.1 K/mm3 (0.0-0.4); EOSINOPHILS PERCENT AUTO 1.2 % (0.0-6.0); IMMATURE GRAN ABSOLUTE AUTO 0.06 K/mm3 (0.00-0.05); IMMATURE GRAN PERCENT AUTO 0.6 % (0.0-0.4); LYMPHOCYTES ABSOLUTE AUTO 1.8 K/mm3 (1.0-4.8); LYMPHOCYTES PERCENT AUTO 19.3 % (24.0-44.0); MEAN PLATELET VOLUME 10.1 fl (9.4-12.3); MONOCYTES ABSOLUTE AUTO 0.6 K/mm3 (0.0-0.8); MONOCYTES PERCENT AUTO 6.0 % (0.0-8.0); NEUTROPHILS ABSOLUTE AUTO 6.9 K/mm3 (1.8-7.7); NEUTROPHILS PERCENT AUTO 72.5 % (41.0-71.0); NRBC ABSOLUTE 0.00 (0.00-0.02); NRBC PERCENT 0.0 % (0.0-0.2); PLATELET COUNT,PLT 194 K/mm3 (150-400); RED BLOOD CELL COUNT 6.39 M/mm3 (4.10-5.30); WHITE BLOOD CELL COUNT,WBC 9.55 K/mm3 (3.9-11.3)
[2025-03-28] MEDS: Nitroglycerin 2% Oint 1 GM UD Packet TOP ONE (03:06)
[2025-03-28 03:32] LABS: A/G RATIO 0.7 (1-2); ALANINE AMINOTRANSFERASE,ALT 41.0 U/L (14-59); ASPARTATE AMNIOTRANSFERASE,AST 28.0 U/L (15-37); BILIRUBIN TOTAL 0.8 mg/dL (0.2-1.0); BLOOD UREA NITROGEN,BUN 36.0 mg/dL (7-18); CARBON DIOXIDE,CO2 25.0 mEq/L (21-32); CHLORIDE,CL 103.0 mEq/L (98-107); CREATININE 1.4 mg/dL (0.55-1.02); EST CRCL DRUG DOSING (CG) 43.11 mL/min; ESTIMATED GFR 43.0 mL/min (>60); GLUCOSE RANDOM 236.0 mg/dL (70-99); POTASSIUM,K 4.5 mEq/L (3.5-5.1); PROTEIN TOTAL,TP 7.9 g/dl (6.4-8.2); SODIUM,NA 137.0 mEq/L (136-145); TROPONIN I HIGH SENSITIVITY 20.0 pg/mL (<=51)
[2025-03-28 03:35] LABS: INR 1.01
[2025-03-28] MEDS ORDERED: Sodium Chloride 0.9% 10 ML Syringe FLUSH PRN (04:35)
[2025-03-28 07:09] VITALS: BP 142/71; PULSE 58
== END 2025-03-28 07:20 ==
LOC: JD.ED 02:09
DX: I20.0 Unstable angina (principal); I11.0 Hypertensive heart disease with heart failure; I50.9 Heart failure, unspecified; E66.9 Obesity, unspecified; E11.9 Type 2 diabetes mellitus without complications; Z88.0 Allergy status to penicillin; Z88.1 Allergy status to other antibiotic agents; Z88.2 Allergy status to sulfonamides; Z88.8 Allergy status to other drugs, medicaments and biological substances; Z79.82 Long term (current) use of aspirin; Z79.4 Long term (current) use of insulin; Z79.899 Other long term (current) drug therapy; Z86.16 Personal history of COVID-19; Z90.49 Acquired absence of other specified parts of digestive tract
CPT/HCPCS: 36415; 71045; 80053; 83880; 84484; 85025; 85610; 85730; 93005; 99285; A9270